=== PATIENT | female | born 1960 | race Caucasian/White ===

== ENCOUNTER → 2017-11-24 | Outpatient (CLI) | payer BC ==
[2017-11-24 14:45] LABS: ADD MAN DIFF? NO
[2017-11-24 15:01] LABS: ALBUMIN 3.9 g/dL (3.4-5.0); ALBUMIN/GLOBULIN RATIO 0.9 (1.0-1.7); ALK PHOS 87 U/L (46-116); ALT (SGPT) 34 U/L (14-59); ANION GAP 7 (6-14); AST (SGOT) 24 U/L (15-37); BLOOD UREA NITROGEN 18 mg/dL (7-20); BUN/CREATININE RATIO 23 (6-20); CALCIUM 9.5 mg/dL (8.5-10.1); CARBON DIOXIDE 30 mmol/L (21-32); CHLORIDE 102 mmol/L (98-107); CREATININE 0.8 mg/dL (0.6-1.0); GFR 73.9; GLUCOSE 98 mg/dL (70-99); POTASSIUM 3.7 mmol/L (3.5-5.1); SODIUM 139 mmol/L (136-145); TOTAL BILIRUBIN 0.7 mg/dL (0.2-1.0); TOTAL PROTEIN 8.4 g/dL (6.4-8.2)
[2017-11-24 15:06] LABS: BASO # 0.1 x10^3/uL (0.0-0.2); BASO % 1 % (0-3); EOS # 0.2 x10^3/uL (0.0-0.7); EOS % 3 % (0-3); HEMATOCRIT 37.2 % (36.0-47.0); HEMOGLOBIN 12.5 g/dL (12.0-15.5); LYMPH # 3.9 x10^3/uL (1.0-4.8); LYMPH % 46 % (24-48); MEAN CORPUSCULAR HEMOGLOBIN 30 pg (25-35); MEAN CORPUSCULAR HGB CONC 34 g/dL (31-37); MEAN CORPUSCULAR VOLUME 87 fL (79-100); MONO # 0.4 x10^3/uL (0.0-1.1); MONO % 5 % (0-9); NEUT # 3.9 x10^3uL (1.8-7.7); NEUT % 46 % (31-73); PLATELET COUNT 320 x10^3/uL (140-400); RED BLOOD COUNT 4.26 x10^6/uL (3.50-5.40); RED CELL DISTRIBUTION WIDTH 16.2 % (11.5-14.5); WHITE BLOOD COUNT 8.5 x10^3/uL (4.0-11.0)
[2017-11-24 15:40] LABS: BILIRUBIN,URINE NEGATIVE (NEG); CLARITY,URINE CLEAR; COLOR,URINE YELLOW; GLUCOSE,URINE NEGATIVE (NEG); NITRITE,URINE NEGATIVE (NEG); PROTEIN,URINE NEGATIVE (NEG-TRACE); UROBILINOGEN,URINE 0.2 mg/dL (0.2 mg/dL)
[2017-11-24 15:58] LABS: BACTERIA,URINE 0 /HPF (0-FEW); SQUAMOUS EPITHELIAL CELL,UR FEW /LPF
== END | disposition home or self-care (01) ==
LOC: SURGPAT 13:51
DX: Z01.818 Encounter for other preprocedural examination (principal); I10 Essential (primary) hypertension
CPT/HCPCS: 36415; 71046; 80053; 81001; 85025; 93005

== ENCOUNTER 2017-12-01 05:36 | Observation (INO) | payer BC ==
[2017-12-01] MEDS ORDERED: METHYLENE BLUE 1% 10 ML VIAL. (06:17)
[2017-12-01] MEDS: IV RINGERS,LACTATED 1000ML 1,000 ML IV (06:37)
[2017-12-01] MEDS ORDERED: ceFAZolin 2GM PREMIX 2 GM/50 ML BAG IV (07:00)
[2017-12-01] MEDS ORDERED: LIDOCAINE 1% PF 2 ML VIAL. ID (07:00)
[2017-12-01] MEDS ORDERED: ONDANSETRON PF 4 MG/2 ML VIAL. IV ×2 (07:00→11:00)
[2017-12-01] MEDS ORDERED: PROCHLORPERAZINE 10 MG/2 ML VIAL. IV (07:00)
[2017-12-01] MEDS ORDERED: fentaNYL PF VIAL 100 MCG/2 ML VIAL IV ×2 (07:00)
[2017-12-01] MEDS ORDERED: PROPOFOL 20 ML IV (07:15)
[2017-12-01] MEDS ORDERED: fentaNYL PF VIAL 100 MCG/2 ML VIAL ×2 (07:15→10:34)
[2017-12-01] MEDS ORDERED: DEXAMETHASONE SOD PHOS 20 MG/5 ML VIAL. (07:15)
[2017-12-01] MEDS ORDERED: ROCURONIUM 50 MG/5 ML VIAL. (07:15)
[2017-12-01] MEDS ORDERED: LIDOCAINE 2% PF Vial for OR 5 ML VIAL. (07:15)
[2017-12-01] MEDS ORDERED: MIDAZOLAM HCL/PF 2 MG/2 ML VIAL. (07:16)
[2017-12-01] MEDS ORDERED: PHENYLEPHRINE in 0.9% NACL PF 1 MG/10 ML SYRINGE. IV (07:54)
[2017-12-01] MEDS: BUPIVACAINE-EPI 0.25%-1:200000 50 ML VIAL. (08:05)
[2017-12-01] MEDS ORDERED: FAMOTIDINE 20 MG/2 ML VIAL (08:32)
[2017-12-01] MEDS: ESTROGENS, CONJ VAGINAL CREAM 30GM TUBE. (10:04)
[2017-12-01] MEDS ORDERED: NEOSTIGMINE METHYLSULFATE 5 MG/5 ML SYRINGE. (10:08)
[2017-12-01] MEDS ORDERED: GLYCOPYRROLATE 1 MG/5 ML VIAL. (10:09)
[2017-12-01] MEDS ORDERED: ePHEDrine PF IN SALINE 50 MG/5 ML DISP.SYRIN IV (10:11)
[2017-12-01] MEDS ORDERED: DESFLURANE > 120 MINUTES IH (10:36)
[2017-12-01] MEDS ORDERED: diphenhydrAMINE 50 MG/ML VIAL IV (11:00)
[2017-12-01] MEDS ORDERED: HYDROcodone/APAP 5/325MG 1 TAB TABLET PO (11:00)
[2017-12-01] MEDS ORDERED: LACTULOSE 20 GM/30 ML SOLUTION. PO (11:00)
[2017-12-01] MEDS ORDERED: CALCIUM CARBONATE 500 MG TAB.CHEW PO (11:00)
[2017-12-01] MEDS ORDERED: diphenhydrAMINE HCL 25 MG CAPSULE PO (11:00)
[2017-12-01] MEDS ORDERED: MAG HYDROX/ALUMINUM HYD/SIMETH 30 ML ORAL.SUSP PO (11:00)
[2017-12-01] MEDS ORDERED: NALOXONE 0.4 MG/ML VIAL. IV (11:00)
[2017-12-01] MEDS ORDERED: MORPHINE SULFATE 4 MG/ML DISP.SYRIN. IV (11:00)
[2017-12-01] MEDS ORDERED: ZOLPIDEM 5 MG TABLET. PO (11:00)
[2017-12-01] MEDS ORDERED: 0.9 % SODIUM CHLORIDE 10 ML DISP.SYRIN. IV (11:00)
[2017-12-01] MEDS ORDERED: MAGNESIUM HYDROXIDE 2,400 MG/30 ML ORAL.SUSP. PO (11:00)
[2017-12-01] MEDS ORDERED: MORPHINE SULFATE 4 MG/ML DISP.SYRIN. (11:21)
[2017-12-01 11:26] LABS: HEMATOCRIT 32.3 % (36.0-47.0)
[2017-12-01] MEDS: MORPHINE SULFATE 2 MG/ML DISP.SYRIN. IV ×2 (11:27→11:39)
[2017-12-01] MEDS: oxyCODONE/APAP 5/325 1 TAB TABLET PO (14:56)
[2017-12-02 07:22] LABS: HEMATOCRIT 29.2 % (36.0-47.0)
[2017-12-02 07:36] LABS: ANION GAP 7 (6-14); BLOOD UREA NITROGEN 12 mg/dL (7-20); CALCIUM 8.4 mg/dL (8.5-10.1); CARBON DIOXIDE 30 mmol/L (21-32); CHLORIDE 104 mmol/L (98-107); CREATININE 0.8 mg/dL (0.6-1.0); GFR 73.9; GLUCOSE 113 mg/dL (70-99); POTASSIUM 4.4 mmol/L (3.5-5.1); SODIUM 141 mmol/L (136-145)
[2017-12-02] MEDS: SIMETHICONE 80 MG TAB.CHEW PO (09:15)
== END 2017-12-02 14:20 | disposition home or self-care (01) ==
LOC: SURG 05:36 → 3 NORTH 11:00
PROVIDERS: Obstetrics & Gynecology
DX: D25.1 Intramural leiomyoma of uterus (principal); N85.2 Hypertrophy of uterus; N72 Inflammatory disease of cervix uteri; N80.0 Endometriosis of uterus; N83.8 Other noninflammatory disorders of ovary, fallopian tube and broad ligament; I10 Essential (primary) hypertension
CPT/HCPCS: 36415; 80048; 85014; 86850; 86900; 86901; 88307; A7015; G0378; G0379; J0690; J1100; J2250; J2270; J2370; J2704; J2710; J3010; J3490; J7030; J7120; Q9968; S0028